=== PATIENT | male | born 1975 | race Caucasian/White ===

== ENCOUNTER 2016-04-10 22:43 | Emergency (ER) | payer SELFPAY | END 2016-04-11 00:10 | disposition left against medical advice (07) | LOC: D.ER 22:43 | DX: H53.8 Other visual disturbances (principal) ==

== ENCOUNTER 2017-01-18 19:35 | Emergency (ER) | payer SELFPAY ==
[2017-01-18 20:40] LABS: BASOPHILS 0.6 % (0-2); EOSINOPHILS 2.4 % (0-7); HEMATOCRIT 43.9 % (42.0-54.0); HEMOGLOBIN 15.1 g/dL (13.5-17.5); IMMATURE GRANULOCYTES 0.5 % (0-5); LYMPHOCYTES 13.9 % (15-50); MCH 32.3 pg (26.0-34.0); MCHC 34.4 g/dL (31.0-37.0); MEAN PLATELET VOLUME 10.6 fL (7.4-10.4); MONOCYTES 7.9 % (2-11); NEUTROPHILS 74.7 % (40-80); PLATELET COUNT 284 10x3/uL (130-400); RBC 4.67 10x6/uL (4.20-6.10); RDW 12.6 % (11.5-14.5); WBC 10.7 10x3/uL (4.8-10.8)
[2017-01-18 20:51] LABS: APPEARANCE TURBID (CLEAR); BILIRUBIN NEGATIVE (NEGATIVE); COLOR YELLOW (YELLOW); GLUCOSE NEGATIVE (NEGATIVE); KETONE NEGATIVE (NEGATIVE); NITRITE NEGATIVE (NEGATIVE); PH 8.5 (5.0-6.0); PROTEIN NEGATIVE (NEGATIVE); UROBILINOGEN NORMAL (NORMAL)
[2017-01-18 20:53] LABS: ALKALINE PHOSPHATASE 77 U/L (46-116); ALT (SGPT) 21 U/L (10-68); BILIRUBIN - TOTAL 0.53 mg/dL (0.2-1.3); CALC OSMOLALITY 285 mosm/kg (275-300); CARBON DIOXIDE 28.6 mmol/L (21.0-32.0); CHLORIDE - SERUM 108 mmol/L (98-107); CREATININE - SERUM 1.3 mg/dL (0.6-1.3); GLUCOSE 108 mg/dL (74-106); POTASSIUM - SERUM 4.6 mmol/L (3.5-5.1); PROTEIN - SERUM 7.1 g/dL (6.4-8.2); SODIUM 142 mmol/L (136-145); UREA NITROGEN 19 mg/dL (7-18); eGFR NON AFRICAN AMERICAN 65 mL/min (90-120)
[2017-01-18 20:55] LABS: BACTERIA MODERATE /hpf (NONE SEEN); EPITHELIAL CELLS OCC /hpf (0-5); HYALINE CAST OCC /lpf (NONE SEEN); RED CELLS - URINE OCC /hpf (0-5); WHITE CELLS - URINE OCC /hpf (0-5)
[2017-01-18 20:56] LABS: AMORPHOUS SEDIMENT >1+ /lpf (NONE SEEN); GRANULAR CAST 0-5 /lpf (NONE SEEN)
[2017-01-18 20:56] LABS: CREATINE KINASE 157 UL (21-232); MAGNESIUM - SERUM 2.2 mg/dL (1.8-2.4)
[2017-01-18 20:58] LABS: TROPONIN-I < 0.017 ng/mL (0.000-0.060)
[2017-01-18 21:02] LABS: UDS - AMPHET POSITIVE QUAL (NEGATIVE); UDS - BARB NEGATIVE QUAL (NEGATIVE); UDS - BENZO NEGATIVE QUAL (NEGATIVE); UDS - COCAINE NEGATIVE QUAL (NEGATIVE); UDS - OPIATE NEGATIVE QUAL (NEGATIVE); UDS - PCP NEGATIVE QUAL (NEGATIVE); UDS - THC NEGATIVE QUAL (NEGATIVE)
== END 2017-01-18 21:45 | disposition home or self-care (01) ==
LOC: D.ER 19:35
PROVIDERS: Emergency Medicine
DX: I10 Essential (primary) hypertension (principal); H53.9 Unspecified visual disturbance; J01.90 Acute sinusitis, unspecified; E86.0 Dehydration; F19.10 Other psychoactive substance abuse, uncomplicated; N28.1 Cyst of kidney, acquired; F17.200 Nicotine dependence, unspecified, uncomplicated

== ENCOUNTER 2017-04-30 21:39 | Emergency (ER) | payer MEDICAID | END 2017-04-30 23:17 | disposition home or self-care (01) | LOC: D.ER 21:39 | DX: R05 Cough (principal); R21 Rash and other nonspecific skin eruption; I10 Essential (primary) hypertension; Z86.73 Personal history of transient ischemic attack (TIA), and cerebral infarction without residual deficits ==

== ENCOUNTER 2017-08-22 17:49 | Emergency (ER) | payer MEDICAID | END 2017-08-22 19:58 | disposition home or self-care (01) | LOC: D.ER 17:49 | DX: M54.5 Low back pain (principal); I10 Essential (primary) hypertension ==

== ENCOUNTER 2017-11-05 19:16 | Emergency (ER) | payer MEDICAID ==
[~2017-11-05] VITALS: Ht 190.5 cm; Wt 100.0 kg
[2017-11-05 19:26] VITALS: BP 124/83; Ht 190.5 cm; Wt 100.0 kg
[2017-11-05] MEDS ORDERED: BUSPAR10 MG PO (19:27)
== END 2017-11-05 21:31 | disposition left against medical advice (07) ==
LOC: D.ER 19:16
DX: F39 Unspecified mood [affective] disorder (principal)

== ENCOUNTER 2018-08-23 03:06 | Emergency (ER) | payer MEDICAID ==
[~2018-08-23] VITALS: Ht 190.5 cm; Wt 97.5 kg
[~2018-08-23 03:06] MED LIST: BUSPAR10 MG PO
[2018-08-23 03:19] VITALS: Ht 190.5 cm; Wt 97.5 kg
[2018-08-23 03:47] LABS: BASOPHILS 0.4 % (0-2); HEMATOCRIT 41.4 % (42.0-54.0); HEMOGLOBIN 14.7 g/dL (13.5-17.5); IMMATURE GRANULOCYTES 0.4 % (0-5); LYMPHOCYTES 14.7 % (15-50); MCHC 35.5 g/dL (31.0-37.0); MEAN PLATELET VOLUME 11.4 fL (7.4-10.4); MONOCYTES 6.7 % (2-11); NEUTROPHILS 74.8 % (40-80); PLATELET COUNT 220 10x3/uL (130-400); WBC 12.8 10x3/uL (4.8-10.8)
[2018-08-23 03:58] LABS: APPEARANCE CLEAR (CLEAR); BILIRUBIN NEGATIVE (NEGATIVE); COLOR YELLOW (YELLOW); GLUCOSE NEGATIVE (NEGATIVE); KETONE NEGATIVE (NEGATIVE); NITRITE NEGATIVE (NEGATIVE); PROTEIN NEGATIVE (NEGATIVE); UROBILINOGEN NORMAL (NORMAL)
[2018-08-23 04:01] LABS: ALBUMIN 3.6 g/dL (3.4-5.0); ALKALINE PHOSPHATASE 76 U/L (46-116); ALT (SGPT) 37 U/L (10-68); BILIRUBIN - TOTAL 0.87 mg/dL (0.2-1.3); CALC OSMOLALITY 284 mosm/kg (275-300); CALCIUM 8.6 mg/dL (8.5-10.1); CARBON DIOXIDE 24.6 mmol/L (21.0-32.0); CHLORIDE - SERUM 106 mmol/L (98-107); CREATININE - SERUM 1.3 mg/dL (0.6-1.3); GLUCOSE 128 mg/dL (74-106); POTASSIUM - SERUM 3.2 mmol/L (3.5-5.1); PROTEIN - SERUM 6.6 g/dL (6.4-8.2); SODIUM 140 mmol/L (136-145); UREA NITROGEN 24 mg/dL (7-18); eGFR NON AFRICAN AMERICAN 65 mL/min (90-120)
[2018-08-23 04:05] LABS: AMYLASE - SERUM 45 U/L (25-115); LIPASE 155 U/L (73-393); TROPONIN-I < 0.017 ng/mL (0.000-0.060)
[2018-08-23 05:34] LABS: UDS - AMPHET POSITIVE QUAL (NEGATIVE); UDS - BARB NEGATIVE QUAL (NEGATIVE); UDS - BENZO NEGATIVE QUAL (NEGATIVE); UDS - COCAINE NEGATIVE QUAL (NEGATIVE); UDS - OPIATE NEGATIVE QUAL (NEGATIVE); UDS - PCP NEGATIVE QUAL (NEGATIVE); UDS - THC NEGATIVE QUAL (NEGATIVE)
[2018-08-23 06:06] VITALS: BP 138/89
== END 2018-08-23 06:02 | disposition home or self-care (01) ==
LOC: D.ER 03:06
PROVIDERS: Family Medicine
DX: E87.6 Hypokalemia (principal); R19.7 Diarrhea, unspecified; X30.XXXA Exposure to excessive natural heat, initial encounter; Y93.89 Activity, other specified; Y92.89 Other specified places as the place of occurrence of the external cause; F15.10 Other stimulant abuse, uncomplicated; Z86.73 Personal history of transient ischemic attack (TIA), and cerebral infarction without residual deficits; F17.200 Nicotine dependence, unspecified, uncomplicated